=== PATIENT | female | born 1990 ===

== ENCOUNTER 2016-12-27 12:36 | Emergency (ER) | payer OTHER ==
[~2016-12-27] VITALS: Ht 170.2 cm; Wt 64.0 kg
[2016-12-27] MEDS ORDERED: SILVER SULFADIAZINE 1% CREAM 50 GM TP ONE (13:45)
--- NOTE | 2016-12-27 13:50 | NUR ---
Patient discharged to home in stable conditon. Written and verbal after care instructions given to patient. Patient verbalizes understanding of instructions.
[2016-12-27] MEDS ORDERED: SILVER SULFADIAZINE 1% CREAM 25 GM TUBE TP ONE (13:55)
[2016-12-27] MEDS ORDERED: HYDROCODONE/APAP 10-325 MG TABLET PO ONE (14:00)
[2016-12-27] MEDS ORDERED: HYDROCODONE/APAP 10-325 MG TABLET ONE (14:12)
== END 2016-12-27 13:59 | disposition home or self-care (01) ==
LOC: ER 12:40
DX: T23.271A Burn of second degree of right wrist, initial encounter (principal); X11.8XXA Contact with other hot tap-water, initial encounter; Y93.89 Activity, other specified; Y92.89 Other specified places as the place of occurrence of the external cause; Y99.8 Other external cause status
CPT/HCPCS: 16020; 99284; A4663